=== PATIENT | male | born 1995 | race Two or more races ===

== ENCOUNTER 2017-05-21 09:07 | Outpatient (CLI) | payer OTHER ==
--- NOTE | 2017-05-21 13:04 | MRI Report ---
EXAM: RIGHT KNEE MRI WITHOUT CONTRAST EXAM DATE: 05/21/2017 09:48 AM. CLINICAL HISTORY: PAIN IN RIGHT KNEE. Rotating/twisting injury right knee 05/12/2017 docking a boat. "Wise a loud pop". COMPARISON: None. TECHNIQUE: Multiplanar, multisequence T1-weighted and fluid-sensitive sequences of the knee without c ontrast. Other: None. FINDINGS: Bones: No fractures or subluxations. No marrow edema. No bone lesions. Articular Cartilage: Unremarkable. Medial Meniscus: The medial meniscus is intact. Lateral Meniscus: The lateral meniscus is intact. Cruciate Ligaments: The anterior and posterior cruciate ligaments are intact. Collateral Ligaments: The medial collateral and lateral collateral ligamentous structures are intact. Tendons: The quadriceps, patellar, semimembranosus, and popliteus tendons are unremarkable. Musculature: No edema or fatty atrophy. Other: Small fluid collection lateral patellar recess. No popliteal cyst. No loose bodies. The media l and lateral retinacula are intact. The subcutaneous tissues and fat pads are unremarkable. Small fl uid collection deep infrapatellar bursa. IMPRESSION: Negative for meniscus tear or internal derangement. [facility] SECTION Referring Provider Line: [phone] SITE ID: [id number]
== END 2017-05-21 09:08 | disposition home or self-care (01) ==
LOC: DI 09:07
PROVIDERS: ATTEND Nurse Practitioner Family
DX: M25.561 Pain in right knee (principal)

== ENCOUNTER 2017-10-05 22:43 | Emergency (ER) | payer OTHER ==
[2017-10-05 23:10] LABS: BASOPHILS % (AUTO) 0.5 %; EOSINOPHILS # (AUTO) 0.1 10^3/uL (0.0-0.7); EOSINOPHILS % (AUTO) 1.4 %; LYMPHOCYTES # (AUTO) 2.7 10^3/uL (1.5-3.5); LYMPHOCYTES % (AUTO) 29.9 %; MEAN CORPUSCULAR HEMOGLOBIN 31.4 pg (27.0-31.0); MEAN CORPUSCULAR HGB CONC 34.3 g/dL (32.0-36.0); MEAN CORPUSCULAR VOLUME 91.4 fL (80.0-94.0); MEAN PLATELET VOLUME 9.1 fL (7.4-11.4); MONOCYTES # (AUTO) 0.7 10^3/uL (0.0-1.0); MONOCYTES % (AUTO) 8.3 %; NEUTROPHILS # (AUTO) 5.3 10^3/uL (1.5-6.6); NEUTROPHILS % (AUTO) 59.9 %; PLT - PLATELET COUNT 223 10^3/uL (130-450); RED BLOOD COUNT 4.77 10^6/uL (4.70-6.10); RED CELL DISTRIBUTION WIDTH 14.4 % (12.0-15.0); WHITE BLOOD COUNT 8.9 x10^3/uL (4.8-10.8)
[2017-10-05 23:20] LABS: ALBUMIN 4.4 g/dL (3.2-5.5); ALBUMIN/GLOBULIN RATIO 1.3 (1.0-2.2); BILIRUBIN,TOTAL 1.3 mg/dL (0.2-1.0); CALCIUM 9.2 mg/dL (8.5-10.3); CREATININE 0.9 mg/dL (0.6-1.2); TOTAL PROTEIN 7.8 g/dL (6.7-8.2)
[2017-10-05 23:24] LABS: CLARITY,URINE CLEAR (CLEAR); GLUCOSE, URINE (UA) NEGATIVE (NEGATIVE); KETONES,URINE (UA) TRACE mg/dL (NEGATIVE); LEUKOCYTE ESTERASE, URINE NEGATIVE (NEGATIVE); NITRITE,URINE NEGATIVE (NEGATIVE); OCCULT BLOOD,URINE NEGATIVE (NEGATIVE); PROTEIN,URINE NEGATIVE (NEGATIVE); UROBILINOGEN,URINE 0.2 (NORMAL) E.U./dL (NORMAL)
[2017-10-05] MEDS ORDERED: METOCLOPRAMIDE 10 MG/2 ML VIAL IVP STA (23:25)
[2017-10-05] MEDS ORDERED: MAG HYDROX/AL HYDROX/SIMETH 30 ML UDC PO STA (23:25)
[2017-10-05] MEDS ORDERED: LIDOCAINE VISCOUS 2% 15 ML UDC MM STA (23:25)
[2017-10-05] MEDS ORDERED: SODIUM CHLORIDE 0.9% 1,000 ML IV ONE (23:25)
[2017-10-05 23:26] LABS: BILIRUBIN,URINE NEGATIVE (NEGATIVE); ICTOTEST,URINE NEGATIVE
--- NOTE | 2017-10-06 00:15 | ED Physician Documentation ---
History of Present Illness - Stated complaint Stated Complaint: HEARTBURN - Chief complaint Chief Complaint: Abd Pain - History obtained from History obtained from: Patient - Additonal information Additional information: 22-year-old male presents the emergency department with increasing epigastric discomfort over the past 3 days. The patient reports a sharp burning sensation. The pain does intermittently radiate into his chest. The patient gets intermittent relief with Zantac. The patient also reports lower abdominal pain, more in the right lower abdomen. The patient reports nausea. No diarrhea or testicular pain. Symptoms are described as moderate. No other associated symptoms. Review of Systems Constitutional: denies: Fever, Chills Ears: denies: Ear pain Nose: denies: Congestion Respiratory: denies: Dyspnea GI: reports: Abdominal Pain, Nausea Skin: denies: Rash Musculoskeletal: denies: Back pain Neurologic: denies: Focal weakness Immunocompromised: denies: Chemotherapy PD PAST MEDICAL HISTORY - Past Medical History Past Medical History: Yes GI: GERD - Past Surgical History Past Surgical History: Yes HEENT: Tonsil/Adenoidectomy - Present Medications Home Medications: Ambulatory Orders Medication Instructions Recorded Confirmed Hydrocodone/Acetaminophen [Vicodin 1 each PO 08/17/15 5-300 mg Tablet] Omeprazole [PriLOSEC] 20 mg PO DAILY 08/17/15 08/17/15 - Allergies Allergies/Adverse Reactions: Allergies Allergy/AdvReac Type Severity Reaction Status Date / Time Penicillins Allergy Hives Verified 10/05/17 22:51 - Social History Does the pt smoke?: No Smoking Status: Never smoker Does the pt drink ETOH?: No Does the pt have substance abuse?: No - Immunizations Immunizations are current?: Yes - POLST Patient has POLST: No PD ED PE NORMAL - General General: Alert and oriented X 3, No acute distress - HEENT HEENT: Atraumatic, PERRL, EOMI, Ears normal - Neck Neck: Supple, no meningeal sign - Cardiac Cardiac: RRR, Strong equal pulses - Respiratory Respiratory: No respiratory distress, Clear bilaterally - Abdomen Abdomen: Soft, Non distended. No: Non tender (The patient is tender palpation in the epigastrium, and the lower abdomen more so on the right. There is no rebound or peritoneal signs) - Back Back: No CVA TTP - Derm Derm: Normal color - Extremities Extremities: No deformity - Neuro Neuro: Alert and oriented X 3, Normal speech - Psych Psych: Normal affect Results - Vitals Vitals: Vital Signs - 24 hr 10/05/17 10/06/17 22:48 01:52 Temperature 36.7 C 36.7 C Heart Rate 61 82 Respiratory 16 16 Rate Blood Pressure 127/85 H 139/89 H O2 Saturation 100 99 Oxygen O2 Source Room air - Labs Labs: Laboratory Tests 10/05/17 10/05/17 10/05/17 23:00 23:00 23:10 WBC 8.9 RBC 4.77 Hgb 15.0 Hct 43.6 MCV 91.4 MCH 31.4 H MCHC 34.3 RDW 14.4 Plt Count 223 MPV 9.1 Neut # (Auto) 5.3 Lymph # (Auto) 2.7 [place] # (Auto) 0.7 Eos # (Auto) 0.1 Baso # (Auto) 0.0 Absolute Nucleated RBC 0.01 Nucleated RBC % 0.1 Sodium 138 Potassium 2.9 L Chloride 107 Carbon Dioxide 21 Anion Gap 10.0 BUN 11 Creatinine 0.9 Estimated GFR (MDRD) 107 Glucose 108 H Calcium 9.2 Total Bilirubin 1.3 H AST 22 ALT 19 Alkaline Phosphatase 88 Total Protein 7.8 Albumin 4.4 Globulin 3.4 Albumin/Globulin Ratio 1.3 Lipase 29 Urine Color YELLOW Urine Clarity CLEAR Urine pH 6.0 Ur Specific [place] 1.020 Urine Protein NEGATIVE Urine Glucose (UA) NEGATIVE Urine Ketones TRACE Urine Occult Blood NEGATIVE Urine Nitrite NEGATIVE Urine Bilirubin NEGATIVE Urine Urobilinogen 0.2 (NORMAL) Ur Leukocyte Esterase NEGATIVE Ur Microscopic Review NOT INDICATED Urine Culture Comments NOT INDICATED - Rads (name of study) CT abdomen pelvis Radiology: Final report received (1. Appendix is not seen. No evidence of appendicitis 2. No other acute inflammatory or obstructive process seen in the abdomen ) PD MEDICAL DECISION MAKING - ED course ED course: On reevaluation the patient is resting comfortably and his symptoms are under control. The patient's workup does not reveal an acute etiology that would necessitate admission to the hospital or acute surgical consultation. I discussed the findings with the patient and plan. The patient understands and agrees. I recommended a referral to gastroenterology from primary care. I discussed warning signs and recommended returning to the emergency department immediately for worsening or any concerns. - Sepsis Event Vital Signs: Vital Signs - 24 hr 10/05/17 10/06/17 22:48 01:52 Temperature 36.7 C 36.7 C Heart Rate 61 82 Respiratory 16 16 Rate Blood Pressure 127/85 H 139/89 H O2 Saturation 100 99 Oxygen O2 Source Room air Departure - Departure Disposition: Home, Self Care Clinical Impression: Abdominal pain Qualifiers: Abdominal location: unspecified location Qualified Code(s): R10.9 - Unspecified abdominal pain Condition: Good Instructions: Abdominal Pain Comments: Please follow-up with primary care this week for recheck and further evaluation. Please ask your primary care physician about a referral to gastroenterology. Please return to the emergency department for worsening symptoms or any concerns
[2017-10-06] MEDS ORDERED: POTASSIUM CHLORIDE 20 MEQ TABLET PO STA (00:24)
[2017-10-06] MEDS ORDERED: IOPAMIDOL-300 50 ML VIAL ONE (00:30)
[2017-10-06] MEDS ORDERED: IOPAMIDOL-300 100 ML VIAL ONE (00:31)
[2017-10-06] MEDS ORDERED: IOPAMIDOL-300 50 ML VIAL PO ONE (01:50)
[2017-10-06] MEDS ORDERED: IOPAMIDOL-300 100 ML VIAL IVP ONE (01:51)
[2017-10-06 01:53] VITALS: BP 139/89
--- NOTE | 2017-10-06 02:02 | CT Report ---
Procedure Date: 10/06/2017 Accession Number: [id number] / [id number] Procedure: CT - Abdomen/Pelvis W/ CPT Code: FULL RESULT: EXAM: CT ABDOMEN AND PELVIS EXAM DATE: 10/06/2017 01:38 AM. CLINICAL HISTORY: Abdominal pain with nausea, vomiting, and diarrhea. COMPARISONS: ABDOMEN/PELVIS W/ 08/07/2015. TECHNIQUE: Routine helical CT imaging was performed through the abdomen and pelvis. IV contrast: 50 ML ISOVUE 300. Enteric contrast: Yes. Reconstructions: Coronal and sagittal. In accordance with CT protocol optimization, one or more of the following dose reduction techniques were utilized for this exam: automated exposure control, adjustment of mA and/or KV based on patient size, or use of iterative reconstructive technique. FINDINGS: Lung Bases: Unremarkable. Liver: No focal abnormality seen. Gallbladder/Bile Ducts: Unremarkable. Spleen: Normal. Pancreas: Normal. Adrenal Glands: Normal. Kidneys: Normal. No masses or hydronephrosis. Peritoneal Cavity/Bowel: No bowel obstruction seen. No diverticulitis. No free air or free fluid. No lymphadenopathy. Appendix is not seen. No evidence of appendicitis. Pelvic Organs: Normal. The bladder and visualized pelvic organs are within normal limits. Vasculature: No aneurysms or other significant abnormality. Bones: No significant abnormality. Other: None. IMPRESSION: 1. Appendix is not seen. No evidence of appendicitis. 2. No other acute inflammatory or obstructive process seen in the abdomen or pelvis. [facility]
== END 2017-10-06 02:15 | disposition home or self-care (01) ==
LOC: ED 22:43
DX: R10.13 Epigastric pain (principal); R10.31 Right lower quadrant pain
CPT/HCPCS: 36415; 74177; 80053; 81003; 83690; 85025; 96361; 96374; 99283; 99284; A9270; J2765; Q9967; 81001; 87086

== ENCOUNTER 2018-08-14 03:30 | Emergency (ER) | payer OTHER ==
--- NOTE | 2018-08-14 04:20 | ED Physician Documentation ---
PD HPI CHEST PAIN - Stated complaint Stated Complaint: CP,SIDE PAIN - Chief complaint Chief Complaint: Cardiac - History obtained from History obtained from: Patient - History of Present Illness Timing - onset: Enter time (01:00), Today Timing - onset during: Light activity Timing - details: Abrupt onset Pain level now: 0 Quality: Pain Location: Substernal, Epigastric Radiation: Back Improved by: Nothing Worsened by: Other (no exacerbating factors) Associated symptoms: Nausea, Vomiting, Feeling faint / dizzy, Palpitations (rapid palpitations). No: Shortness of air, Diaphoresis, General Weakness Recently seen: Not recently seen - Additional information Additional information: while at work at approximately 1 AM, sudden onset epigastric/low chest pain radiating around to back associated with rapid palpitations, nausea, vomiting, dizziness. Improved after vomiting and resolved by the time of this evaluation. Review of Systems Cardiac: reports: Chest pain / pressure, Palpitations. denies: Pedal edema, Calf pain Respiratory: reports: Reviewed and negative GI: reports: Abdominal Pain, Nausea, Vomiting. denies: Constipation, Diarrhea PD PAST MEDICAL HISTORY - Past Medical History GI: GERD - Past Surgical History Past Surgical History: Yes HEENT: Tonsil/Adenoidectomy - Present Medications Home Medications: Ambulatory Orders Medication Instructions Recorded Confirmed Hydrocodone/Acetaminophen [Vicodin 1 each PO 08/17/15 5-300 mg Tablet] Omeprazole [PriLOSEC] 20 mg PO DAILY 08/17/15 08/17/15 - Allergies Allergies/Adverse Reactions: Allergies Allergy/AdvReac Type Severity Reaction Status Date / Time Penicillins Allergy Hives Verified 10/05/17 22:51 - Social History Does the pt smoke?: No Smoking Status: Never smoker Does the pt drink ETOH?: No Does the pt have substance abuse?: No - Immunizations Immunizations are current?: Yes - POLST Patient has POLST: No PD ED PE NORMAL - Vitals Vital signs reviewed: Yes - General General: Alert and oriented X 3, No acute distress, Well developed/nourished - HEENT HEENT: Moist mucous membranes - Cardiac Cardiac: RRR, No murmur - Respiratory Respiratory: No respiratory distress, Clear bilaterally - Abdomen Abdomen: Soft, Non tender - Derm Derm: Normal color, Warm and dry - Extremities Extremities: No edema Results - Vitals Vitals: Vital Signs - 24 hr 08/14/18 08/14/18 08/14/18 03:34 05:37 06:37 Temperature 36.7 C Heart Rate 53 L 44 L 61 Respiratory 20 16 22 Rate Blood Pressure 154/98 H 128/84 H 136/89 H O2 Saturation 100 99 100 Oxygen O2 Source Room air - Labs Labs: Laboratory Tests 08/14/18 08/14/18 04:35 04:35 WBC 5.9 RBC 5.03 Hgb 15.7 Hct 47.3 MCV 94.0 MCH 31.2 H MCHC 33.2 RDW 12.6 Plt Count 204 MPV 11.2 Neut # (Auto) 3.5 Lymph # (Auto) 1.9 [place] # (Auto) 0.4 Eos # (Auto) 0.1 Baso # (Auto) 0.0 Absolute Nucleated RBC 0.00 Nucleated RBC % 0.0 Sodium 143 Potassium 3.8 Chloride 108 Carbon Dioxide 23 Anion Gap 12.0 BUN 12 Creatinine 0.8 Estimated GFR (MDRD) 121 Glucose 102 H Calcium 9.8 Total Bilirubin 1.3 H AST 38 ALT 67 H Alkaline Phosphatase 108 Total Protein 7.8 Albumin 4.6 Globulin 3.2 Albumin/Globulin Ratio 1.4 Lipase 24 PD MEDICAL DECISION MAKING - ED course Complexity details: reviewed old records, reviewed results, re-evaluated patient, considered differential, d/w patient ED course: Asymptomatic on reevaluation after tests resulted Departure - Departure Disposition: 01 Home, Self Care Clinical Impression: Atypical chest pain Condition: Good Instructions: ED Chest Pain Atypical Unkn Cause Follow-Up: DEANDRE Matias [Provider Group] Discharge Date/Time: 08/14/18 06:41
[2018-08-14 05:13] LABS: BASOPHILS % (AUTO) 0.3 %; EOSINOPHILS # (AUTO) 0.1 10^3/uL (0.0-0.7); EOSINOPHILS % (AUTO) 0.8 %; HGB - HEMOGLOBIN 15.7 g/dL (14.0-18.0); LYMPHOCYTES # (AUTO) 1.9 10^3/uL (1.5-3.5); MEAN CORPUSCULAR HEMOGLOBIN 31.2 pg (27.0-31.0); MEAN CORPUSCULAR HGB CONC 33.2 g/dL (32.0-36.0); MEAN PLATELET VOLUME 11.2 fL (7.4-11.4); MONOCYTES # (AUTO) 0.4 10^3/uL (0.0-1.0); MONOCYTES % (AUTO) 6.6 %; NEUTROPHILS # (AUTO) 3.5 10^3/uL (1.5-6.6); NEUTROPHILS % (AUTO) 59.6 %; PLT - PLATELET COUNT 204 10^3/uL (130-450); RED BLOOD COUNT 5.03 10^6/uL (4.70-6.10); RED CELL DISTRIBUTION WIDTH 12.6 % (12.0-15.0); WHITE BLOOD COUNT 5.9 x10^3/uL (4.8-10.8)
[2018-08-14 05:26] LABS: ALBUMIN 4.6 g/dL (3.2-5.5); ALBUMIN/GLOBULIN RATIO 1.4 (1.0-2.2); BILIRUBIN,TOTAL 1.3 mg/dL (0.2-1.0); CALCIUM 9.8 mg/dL (8.5-10.3); CREATININE 0.8 mg/dL (0.6-1.2); TOTAL PROTEIN 7.8 g/dL (6.7-8.2)
[2018-08-14 06:37] VITALS: BP 136/89
== END 2018-08-14 06:41 | disposition home or self-care (01) ==
LOC: ED 03:30
DX: R07.89 Other chest pain (principal); R10.13 Epigastric pain; R11.2 Nausea with vomiting, unspecified; K21.9 Gastro-esophageal reflux disease without esophagitis
CPT/HCPCS: 36415; 80053; 83690; 85025; 99283